=== PATIENT | female | born 1990 | race Asian ===

== ENCOUNTER 2018-11-24 13:54 | Emergency (ER) | payer OTHER ==
[~2018-11-24] VITALS: Ht 172.7 cm; Wt 56.7 kg
--- NOTE | 2018-11-24 14:28 | Emergency Room Report ---
History of Present Illness General Chief Complaint: General Complaint Source: Patient Present Illness HPI 28-year-old female with no significant past medical history here on the Worker' s Compensation after a needlestick injury. 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 Reports negative past medical history for blood-borne diseases of the patient that accidentally poked her palm with a contaminated needle. Any fever chills, shortness of breath, palpitation, dizziness and all other associated symptoms. Past positive history of HIV, hepatitis B and C. Allergies: Coded Allergies: LATEX (Verified Allergy, Unknown, 11/24/18) Patient History Past Medical History: see triage record Past Surgical History: unable to obtain Pertinent Family History: unable to obtain Last Menstrual Period: 10/2018 Now: No : 0 Para: 0 Immunizations: UTD Reviewed Nursing Documentation: PMH: Agreed; PSxH: Agreed Nursing Documentation-PMH Past Medical History: No Stated History Review of Systems All Other Systems: negative except mentioned in HPI Physical Exam Vital Signs Date Time Temp Pulse Resp B/P (MAP) Pulse Ox O2 Delivery O2 Flow Rate FiO2 11/24/18 14:13 98.4 82 18 96 Room Air Sp02 EP Interpretation: reviewed, normal General Appearance: normal inspection, well appearing Head: normocephalic Eyes: bilateral eye normal inspection, bilateral eye PERRL ENT: normal ENT inspection, hearing grossly normal Neck: normal inspection, full range of motion, supple, thyroid normal, no bony tend Respiratory: chest non-tender, lungs clear Cardiovascular #1: normal inspection, normal peripheral pulses, regular rate, rhythm Cardiovascular #2: 2+ radial (R), 2+ radial (L) Gastrointestinal: normal inspection, non tender Musculoskeletal: back normal, gait/station normal, other - Puncture on right palm Neurologic: normal inspection, alert, oriented x3 Psychiatric: normal inspection, judgement/insight normal, memory normal Skin: normal inspection, normal color Lymphatic: normal inspection, no adenopathy Medical Decision Making PA Attestation All my diagnosis and treatment plans were reviewed ad discussed with my supervising physician Dr. Flores Diagnostic Impression: Primary Impression: Needle stick injury ER Course 28-year-old female with no significant past medical history here on the Worker' s Compensation after a needlestick injury. 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 Reports negative past medical history for blood-borne diseases of the patient that accidentally poked her palm with a contaminated needle. Any fever chills, shortness of breath, palpitation, dizziness and all other associated symptoms. Past positive history of HIV, hepatitis B and C. Ddx considered but are not limited to: puncture wound infected, HIV, Hep B, Hep C, needle stick injury Vital signs: are WNL, pt. is afebrile H&PE are most consistent with needle stick injury ORDERS: hep B, hep C, HIV, RPR ED INTERVENTIONS: None required at this time. DISCHARGE: At this time pt. is stable for d/c to home. Will provide printed patient care instructions, and any necessary prescriptions. Care plan and follow up instructions have been discussed with the patient prior to discharge. pending Lab results will be contacted with the results Last Vital Signs Date Time Temp Pulse Resp B/P (MAP) Pulse Ox O2 Delivery O2 Flow Rate FiO2 11/24/18 14:13 98.4 82 18 96 Room Air Disposition: HOME, SELF-CARE Condition: Stable Patient Instructions: Needle Stick Injury, [id number] Wendie Duque November 24, 2018 14:28
--- NOTE | 2018-11-24 14:29 | NUR ---
ED Nurse Note: pt walked in, c/c accidental needle stick, pt reports she was trying to start IV on a pt at [facility], it was unsuccessful and accidentally stuck herself in right hand. noted small puncture wound, no bleeding at this time. will cont monitor.
[2018-11-24 14:30] VITALS: BP 116/81
--- NOTE | 2018-11-24 14:32 | NUR ---
HAND-OFF: Report given to [place] and endorsed care.
--- NOTE | 2018-11-24 14:40 | NUR ---
ED Nurse Note: Blood specimen sent.
[2018-11-24 14:42] VITALS: BP 120/76
--- NOTE | 2018-11-24 14:42 | NUR ---
ER DISCHARGE NOTE: Patient is cleared to be discharged per PA, pt is aox4, on room air, with stable vital signs. pt was given dc instructions, pt was able to verbalize understanding, pt id band removed. pt is able to ambulate with steady gait. pt took all belongings.
== END 2018-11-24 15:00 | disposition home or self-care (01) ==
LOC: EMR 14:48
DX: S61.431A Puncture wound without foreign body of right hand, initial encounter (principal); W46.1XXA Contact with contaminated hypodermic needle, initial encounter; Y92.9 Unspecified place or not applicable; Z91.040 Latex allergy status; B20 Human immunodeficiency virus [HIV] disease; Z86.19 Personal history of other infectious and parasitic diseases
CPT/HCPCS: 86592; 86703; 86706; 86803; 87536; 99283